=== PATIENT | female | born 1970 | race Caucasian/White ===

== ENCOUNTER 2017-03-29 18:06 | Emergency (ER) | END 2017-03-29 20:30 | disposition home or self-care (01) ==

== ENCOUNTER 2017-03-29 23:32 | Emergency (ER) | END 2017-03-30 00:45 | disposition home or self-care (01) ==

== ENCOUNTER 2017-08-12 09:40 | Emergency (ER) | END 2017-08-12 12:39 | disposition home or self-care (01) ==

== ENCOUNTER 2018-02-11 20:26 | Emergency (ER) | END 2018-02-12 03:30 | disposition home or self-care (01) ==

== ENCOUNTER 2018-06-08 11:24 | Emergency (ER) | payer OTHER, BC ==
[~2018-06-08] VITALS: Ht 167.6 cm; Wt 74.0 kg
[~2018-06-08 11:24] MED LIST: ACET500C5 PO; MECL-77 PO; ONDA4TAB14 PO; ONDA8TAB14 PO
[2018-06-08 11:28] VITALS: Ht 167.6 cm; Wt 74.0 kg
--- NOTE | 2018-06-08 12:13 | ERD ---
ER Documentation Chief Complaint Chief Complaint chest wall pain after working out @ gym yesterday. HPI 47-year-old female presents with chest wall pain located more on the right side began yesterday after working out, specifically a kickboxing class. She has no cardiac past medical history. The pain is worse when she moves her arms or takes a deep breath. No alcohol smoking or drugs. No nausea or vomiting. ROS All systems reviewed and are negative except as per history of present illness. Medications Home Meds Active Scripts Meclizine Hcl* (Meclizine Hcl*) 25 Mg Tablet, 25 MG PO Q8H PRN for DIZZINESS, #20 TAB Prov:IDCK FRIEDMAN MD 08/12/17 Ondansetron (Ondansetron Odt) 8 Mg Tab.rapdis, 8 MG PO Q6H PRN for NAUSEA AND/OR VOMITING, #10 TAB Prov:DICK FRIEDMAN MD 08/12/17 Ondansetron (Ondansetron Odt) 4 Mg Tab.rapdis, 4 MG PO Q6H PRN for NAUSEA AND/OR VOMITING, #20 TAB Prov:CARIE MOSER NP 03/29/17 Acetaminophen* (Tylophen*) 500 Mg Capsule, 1 CAP PO Q6H PRN for PAIN AND OR ELEVATED TEMP, #20 CAP Prov:CARIE MOSER NP 03/29/17 Reported Medications [none] Unknown Strength No Conflict Check 03/29/17 Allergies Allergies: Coded Allergies: No Known Allergy (Unverified , 06/08/18) PMhx/Soc History of Surgery: Yes (, rhinoplasty) Anesthesia Reaction: No Hx Neurological Disorder: No Hx Respiratory Disorders: No Hx Cardiac Disorders: No Hx Psychiatric Problems: No Hx Miscellaneous Medical Probl: No Hx Alcohol Use: No Hx Substance Use: No Hx Tobacco Use: No FmHx Family History: No diabetes Physical Exam Vitals Vital Signs Date Temp Pulse Resp B/P (MAP) Pulse Ox O2 O2 Flow FiO2 Time Delivery Rate 06/08/18 97.0 90 18 126/69 100 11:28 (88) Physical Exam INITIAL VITAL SIGNS: Reviewed by me GENERAL: Awake, alert and oriented x 4, well appearing, nontoxic, speaking in full sentences. No acute distress HEAD: Atraumatic NECK: Supple. No masses. Full range of motion. No meningismus. No midline tenderness. EYES: EOMI. PERRL RESPIRATORY: Clear to auscultation bilaterally. Symmetric chest wall rise. No wheezing or rales. No accessory muscle use. CV: Regular rate and rhythm. No murmurs, rubs, or gallops. ABDOMEN: Soft, non-distended. Nontender. Negative [place]. Negative McBurneys point tenderness. No CVA tenderness bilaterally. No guarding. No rebound. Results 24 hrs Laboratory Tests Test 06/08/18 12:23 POC Beta HCG, Qualitative NEGATIVE Procedures/MDM Patient has chest wall pain after exercising class yesterday. The differential diagnosis includes but is not limited to acute coronary syndrome acute myocardial infarction, pericarditis, pulmonary embolism, aortic dissection, pneumonia, pleural effusion, pneumothorax, GERD, chest wall pain, and others. EKG sinus rhythm with no evidence of ST elevation or acute ischemic changes. Chest x-ray is negative. I doubt cardiac etiology for her symptoms most likely musculoskeletal versus pleuritic chest pain. She should take anti-inflammatory such as Tylenol or Motrin at home. Patient counseled regarding my diagnostic impression and care plan. Prior to discharge all questions answered. Pt agrees with treatment plan and understands strict return precautions. Pt is instructed to follow up with primary care provider within 24-48 hours. Precautionary instructions provided including instructions to return to the ER if not improving or for any worsening or changing symptoms or concerns. Departure Diagnosis: Primary Impression: Chest wall pain Condition: Stable STANFORD RODRIGUEZ PA-C Jun 08, 2018 12:13
[2018-06-08] MEDS ORDERED: IBUP-1542 PO (12:28)
[2018-06-08 12:38] VITALS: BP 109/63; PULSE 77; RESP 20
== END 2018-06-08 12:38 | disposition home or self-care (01) ==
LOC: FTE 11:24
DX: R07.89 Other chest pain (principal)
CPT/HCPCS: 71045; 81025; 93005

== ENCOUNTER 2018-12-09 10:15 | Emergency (ER) | payer OTHER, BC ==
[~2018-12-09] VITALS: Ht 162.6 cm; Wt 72.1 kg
[~2018-12-09 10:15] MED LIST changes: +IBUP-1542 PO; +TRIA15CR55 TOP
[2018-12-09 10:33] VITALS: BP 118/59; PULSE 72; RESP 18; Ht 162.6 cm; Wt 72.1 kg
== END 2018-12-09 11:58 | disposition home or self-care (01) ==
LOC: FTE 10:15
DX: S80.861A Insect bite (nonvenomous), right lower leg, initial encounter (principal); W57.XXXA Bitten or stung by nonvenomous insect and other nonvenomous arthropods, initial encounter; Y92.9 Unspecified place or not applicable
CPT/HCPCS: 99283

== ENCOUNTER 2019-01-18 11:16 | Emergency (ER) | payer OTHER, BC ==
[~2019-01-18] VITALS: Ht 162.6 cm; Wt 73.9 kg
[~2019-01-18 11:16] MED LIST changes: +BEN25 PO; +CEPH-443 PO; +MED4DP PO
[2019-01-18 11:19] VITALS: BP 120/61; PULSE 82; RESP 17; Ht 162.6 cm; Wt 73.9 kg
[2019-01-18] MEDS ORDERED: DEXAMETHASONE 10 MG/ML 1 ML INJ IM ONE (12:00)
[2019-01-18] MEDS ORDERED: FAMOTIDINE 20 MG TAB PO ONE (12:00)
== END 2019-01-18 12:00 | disposition home or self-care (01) ==
LOC: FTE 11:16
DX: S80.861A Insect bite (nonvenomous), right lower leg, initial encounter (principal); S80.862A Insect bite (nonvenomous), left lower leg, initial encounter; W57.XXXA Bitten or stung by nonvenomous insect and other nonvenomous arthropods, initial encounter; Y92.9 Unspecified place or not applicable
CPT/HCPCS: 96372; J1100